=== PATIENT | female | born 1975 ===

== ENCOUNTER 2024-04-17 04:00 | Day surgery (SDC) | payer OTHER ==
[2024-04-13 12:58] VITALS: BMI 33.3
[2024-04-17] MEDS ORDERED: MIDAZOLAM HCL 2 MG/2 ML SINGLE DOSE VIAL ONE (10:08)
[2024-04-17] MEDS ORDERED: LIDOCAINE HCL/PF 2% SDV 5ML VIAL ONE (10:08)
[2024-04-17] MEDS ORDERED: ROCURONIUM BROMIDE 50 MG/5 ML SYRINGE ONE (10:08)
[2024-04-17] MEDS ORDERED: SUCCINYLCHOLINE CHLORIDE 200 MG/10 ML SYRINGE ONE (10:08)
[2024-04-17] MEDS ORDERED: PROPOFOL 20 ML ONE (10:08)
[2024-04-17] MEDS ORDERED: CEFOXITIN SODIUM 2 GM IVPB ONE (10:25)
[2024-04-17] MEDS ORDERED: HEPARIN NA (PORCINE) 5,000 UNITS/ML 1ML VIAL ONE (10:57)
[2024-04-17] MEDS: cefOXitin SODIUM 1 GM VIAL (RESTRICTED TO ID) IVPB ONE (11:09)
[2024-04-17] MEDS ORDERED: KETOROLAC TROMETHAMINE 30 MG/1 ML VIAL ONE (11:12)
[2024-04-17] MEDS ORDERED: DEXAMETHASONE SOD PHOSPHATE 4 MG/1 ML VIAL ONE (11:12)
[2024-04-17] MEDS ORDERED: ONDANSETRON 4 MG/2 ML VIAL ONE ×2 (11:12→12:42)
[2024-04-17] MEDS: BUPIVACAINE HCL/PF 0.25% (2.5MG/ML) 10 ML VIAL IJ ONE ×2 (11:29)
[2024-04-17] MEDS ORDERED: oxyCODONE HCL 5 MG TABLET PO PRN (11:43)
[2024-04-17] MEDS ORDERED: PROMETHAZINE HCL 25 MG/1 ML VIAL IVPB PRN (11:43)
[2024-04-17] MEDS: LACTATED RINGERS SOLUTION 1,000 ML IV SCH (12:40)
[2024-04-17] MEDS ORDERED: ACETAMINOPHEN INJECTION 100 ML ONE (12:42)
[2024-04-17] MEDS: ONDANSETRON 4 MG/2 ML VIAL IVPUSH PRN (12:45)
[2024-04-17] MEDS: ACETAMINOPHEN 1000 MG/100 ML BAG IVPB ONE (12:48)
[2024-04-17 15:06] VITALS: RESP 18
[2024-04-17 15:25] VITALS: PULSE 82
[2024-04-17] MEDS ORDERED: oxyCODONE HCL 5 MG TABLET ONE (15:50)
[2024-04-17] MEDS: oxyCODONE HCL 5 MG TABLET PO PRN (15:50)
[2024-04-17 16:52] VITALS: BP 141/82; TEMP 97.1
== END 2024-04-17 17:00 | disposition home or self-care (01) ==
LOC: JASU-SURG 04:00
PROVIDERS: ATTEND Surgery
PROC: 0FT44ZZ Resection of Gallbladder, Percutaneous Endoscopic Approach (ICD-10-PCS; principal; 2024-04-17 11:00)
DX: K80.10 Calculus of gallbladder with chronic cholecystitis without obstruction (principal)
CPT/HCPCS: 81025; 88304-TC; 94760; J0131; J1644